=== PATIENT | male | born 1955 | race Caucasian/White ===

== ENCOUNTER 2019-12-29 14:30 | Outpatient (RCR) | payer OTHER, MEDICAID, SELFPAY | END 2019-12-29 15:20 | disposition home or self-care (01) | LOC: PT 14:30 | PROVIDERS: PCP Family Medicine; Visit Provider Orthopaedic Surgery | DX: Z96.651 Presence of right artificial knee joint; M25.561 Pain in right knee | CPT/HCPCS: 97010; 97014; 97016; 97110; 97140; 97163; 97164; G0283 ==

== ENCOUNTER 2020-01-26 10:00 | Outpatient (RCR) | payer OTHER, MEDICAID, SELFPAY | END 2020-01-26 11:02 | disposition home or self-care (01) | LOC: PT 10:00 | PROVIDERS: PCP Family Medicine; Visit Provider Orthopaedic Surgery | DX: M25.562 Pain in left knee; Z96.652 Presence of left artificial knee joint | CPT/HCPCS: 97010; 97014; 97016; 97110; 97140; 97163; 97164; 97760; G0283 ==

== ENCOUNTER 2020-03-29 10:09 | Emergency (ER) | payer MEDICAID, SELFPAY ==
[2020-03-29 10:15] VITALS: BP 125/91; PULSE 81; RESP 21; TEMP 37.1; O2SAT 99; BMI 35.3
--- NOTE | 2020-03-29 10:33 | HMH.EDUTC ---
[facility] [place] Clinical Impression: Gout of left foot Qualifiers: Gout etiology: unspecified cause Chronicity: acute Qualified Code(s): M10.9 - Gout, unspecified Disposition: Home, Self-Care Condition on Discharge: Good Instructions: DI for Gout Additional Instructions: Follow up with Dr Brady after the holidays to discuss prophylaxis Prescriptions: methylPREDNISolone [Medrol 4mg tab] 4 mg PO DIRECTED #21 tab Transmission Status: Pending to [id number] Referrals: Levi Brady MD [Primary Care Provider] - Time of Disposition: 11:26 Medical Decision Making - Jimmie Inquiry Pt receiving controlled substance: No Vital Signs: 03/29/20 10:15 Temperature 98.8 F Temperature Source Oral Pulse Rate [Right Brachial] 81 Respiratory Rate 21 Blood Pressure [Right Arm] 125/91 H Blood Pressure Mean [Right Arm] 102 Blood Pressure Source [Right Arm] Automatic Cuff Blood Pressure Position [Right Arm] Sitting 02 Sat by Pulse Oximetry 99 Oxygen Delivery Method Room Air - Lab Data Lab results reviewed: Yes: I reviewed the patient's lab results. Lab Results 03/29/20 10:50: WBC 7.3, RBC 5.41, Hgb 14.9, Hct 47.1, MCV 87.0, MCH 27.5, MCHC 31.6 L, RDW 14.5, Plt Count 328, MPV 6.9 L, Neut % (Auto) 64.8, Lymph % (Auto) 24.3, Kimball % (Auto) 7.5, Eos % (Auto) 2.8, Baso % (Auto) 0.6, Neut # (Auto) 4.7, Lymph # (Auto) 1.8, Kimball # (Auto) 0.6, Eos # (Auto) 0.2, Baso # (Auto) 0.0 03/29/20 10:50: Uric Acid 10.0 H Result diagrams: 03/29/20 10:50 - Radiology Data #1 Image(s): Foot/Toes Image Reviewed: Yes I reviewed the patient's radiology image, Yes I have reviewed radiologist's interpretation Preliminary Findings: Normal/NAD [facility] [place] H[place] - General Stated complaint: pain in L foot Time Seen by Provider: 03/29/20 10:33 Mode of Arrival: Ambulatory Source of Information: Patient Limitations: No Limitations Description of Symptoms (Recalled from Triage Doc. by RN): PATIENT C/O LEFT OUTER FOOT PAIN X 5-6 DAYS. NO KNOWN INJURY. HE STATES THAT IT HURTS WORSE WHEN GETTING UP AND COMPRESSION HELPS THE PAIN HEENT Symptoms (Recalled from RN notes): No Resp Symptoms (Recalled from RN notes): No Skin Symptoms (Recalled from RN notes): No MS Symptoms (Recalled from RN notes): Yes Functional Status (Recalled from RN notes): WNL - History of Present Illness Provider Complaint: Pain left outer mid foot X 1 week. No known injury. Pain is worse first thing in the morning when he first steps down. No relief throughout the day. Compression makes it feel better, but it is sore to the touch. Also some redness and swelling. No history of gout. Onset (ago): week(s) (1) Location: left, lower extremity Quality: aching Relieving factors: other (compression) Exacerbating factors: other (weight bearing) Associated symptoms: denies other symptoms Treatments prior to arrival: none - Related Data Previous Rx's Medication Instructions Recorded methylPREDNISolone [Medrol 4mg 4 mg PO DIRECTED #21 tab 03/29/20 tab] Allergies Allergy/AdvReac Type Severity Reaction Status Date / Time latex Allergy Verified 03/29/20 10:27 - Worker's Comp Is this a Worker's Comp case?: No [facility] [place] History - Hepatitis A Screen Drug use history?: No High risk sexual behaviors?: No History of sexually transmitted infection?: No Currently employed?: No Childcare worker?: No Do you have indoor plumbing?: Yes Do you have electricity?: Yes Attestation statement:: This patient has been screened for Hepatitis A risk factors. I have reviewed the patient's past medical history: Yes - Social History Alcohol Intake: never Occupational Status: other ROS Obtained: Yes All systems reviewed & no additional complaints - Musculoskeletal Musculoskeletal: Reports as per HPI Physical Exam - General General appearance: alert, in no apparent distress - Head Head exam: atraumatic, normocephalic - Eye Eye exam: Present: P
--- NOTE | 2020-03-29 10:42 | XR_ITS ---
PROCEDURE: XR FOOT LT MIN 3V CLINICAL INDICATION: pain COMPARISON: No exams were available for comparison FINDINGS: No fracture or dislocation. No lytic or blastic change. There is normal mineralization. Minimal osteoarthritic changes at the navicular cuneiform and cuneiform metatarsal junction. Other findings:None. IMPRESSION: Minimal osteoarthritic change otherwise negative Dictated by: Yordan Ventura MD 03/29/2020 10:58 Yordan Ventura MD in [place] 03/29/2020 10:58
[2020-03-29 11:03] LABS: Basophils % 0.6 % (0.1-2.0); Eosinophils # 0.2 K/mm3 (0.0-0.4); Eosinophils % 2.8 % (0.1-12.0); Hematocrit 47.1 % (42.0-52.0); Hemoglobin 14.9 g/dL (14.1-18.0); Lymphocytes # 1.8 K/mm3 (0.7-4.5); Lymphocytes % 24.3 % (10-50); Mean Corpuscular HGB Conc 31.6 g/dL (31.8-35.4); Mean Corpuscular Hemoglobin 27.5 pg (27.0-31.2); Mean Platelet Volume 6.9 fl (7.4-10.4); Monocytes # 0.6 K/mm3 (0.1-1.0); Monocytes % 7.5 % (1.7-9.3); Neutrophils # 4.7 K/mm3 (1.8-7.8); Neutrophils % 64.8 % (37.0-80.0); Platelet Count 328 K/mm3 (142-424); Red Blood Count 5.41 M/mm3 (4.60-6.20); Red Cell Distribution Width 14.5 % (11.5-17.5); White Blood Count 7.3 K/mm3 (4.8-10.8)
[2020-03-29 11:42] VITALS: BP 125/91; PULSE 81; RESP 21; TEMP 37.1; O2SAT 99
== END 2020-03-29 11:45 | disposition home or self-care (01) ==
PROVIDERS: Emergency Provider Physician Assistant; PCP Family Medicine
DX: M10.072 Idiopathic gout, left ankle and foot (principal)
CPT/HCPCS: 73630; 84550; 85025; 96372; 99202; J1040

== ENCOUNTER 2020-04-11 09:00 | Outpatient (RCR) | payer MEDICAID, SELFPAY | END 2020-04-11 09:05 | disposition home or self-care (01) | LOC: PT 09:00 | PROVIDERS: PCP Family Medicine; Visit Provider Orthopaedic Surgery | DX: M25.512 Pain in left shoulder (principal) | CPT/HCPCS: 97010; 97014; 97033; 97035; 97110; 97163; 97164; G0283 ==

== ENCOUNTER → 2021-04-09 12:45 | Outpatient (CLI) | payer OTHER, SELFPAY | PROVIDERS: Visit Provider Nurse Practitioner | DX: U07.1 COVID-19 (principal) | CPT/HCPCS: C9803; U0003; U0005 ==

== ENCOUNTER → 2021-04-11 07:09 | Outpatient (CLI) | payer SELFPAY ==
[2021-04-11] VITALS (9 sets, daily range): BP systolic 146–159; BP diastolic 88–97; PULSE 61–73; RESP 18; TEMP 36.6; O2SAT 94–96
== END | disposition home or self-care (01) ==
PROVIDERS: PCP Family Medicine; Visit Provider Family Medicine
DX: U07.1 COVID-19 (principal); Z23 Encounter for immunization; R50.9 Fever, unspecified; R05.9 Cough, unspecified
CPT/HCPCS: 96365

== ENCOUNTER → 2021-04-24 14:16 | Outpatient (CLI) | payer OTHER, SELFPAY | PROVIDERS: PCP Family Medicine; Visit Provider Nurse Practitioner | DX: U07.1 COVID-19 (principal) | CPT/HCPCS: C9803; U0003; U0005 ==